=== PATIENT | female | born 1970 | race Caucasian/White ===

== ENCOUNTER 2018-05-29 14:03 | Emergency (ER) | payer OTHER ==
[~2018-05-29] VITALS: Ht 165.1 cm; Wt 77.1 kg
[~2018-05-29 14:03] MED LIST: NAPROSYN500 MG PO; ROBAXIN500 MG PO
[2018-05-29] MEDS ORDERED: ROBAXIN 750 MG750 M1 PO (14:42)
[2018-05-29 14:49] VITALS: BP 177/98
== END 2018-05-29 14:49 | disposition home or self-care (01) ==
LOC: M.ERS 14:03
DX: M54.2 Cervicalgia (principal); R51 Headache; M54.9 Dorsalgia, unspecified; V89.2XXA Person injured in unspecified motor-vehicle accident, traffic, initial encounter; Y93.89 Activity, other specified; Y92.89 Other specified places as the place of occurrence of the external cause; Y99.8 Other external cause status